=== PATIENT | female | born 1955 | race Asian ===

== ENCOUNTER 2017-10-09 11:19 | Emergency (ER) | payer OTHER ==
[~2017-10-09] VITALS: Ht 160 cm; Wt 54.0 kg
[2017-10-09 11:47] VITALS: Ht 160 cm; Wt 54.0 kg
[2017-10-09 13:05] LABS: BASOPHIL % 0.3 % (0-2); PLATELET COUNT 249 x10^3mcL (130-400); RED CELL DISTRIBUTION WIDTH 12.8 % (11.5-14.5)
[2017-10-09 13:13] LABS: UA SPECIFIC GRAVITY <=1.005 (1.005-1.035); microscopic required? YES; urine erythrocyte TRACE (NEGATIVE)
[2017-10-09 13:26] LABS: CALCIUM 8.2 mg/dL (8.5-10.1); CARBON DIOXIDE 28.5 mmol/L (21-32); CHLORIDE SERUM 108 mmol/L (98-107); CREATININE SERUM 0.5 mg/dL (0.6-1.0); GFR1 > 60 mL/min; GLUCOSE SERUM 99 mg/dL (74-106); POTASSIUM SERUM 3.2 mmol/L (3.5-5.1); SODIUM SERUM 141 mmol/L (136-145)
[2017-10-09 13:30] LABS: ALBUMIN 3.6 g/dL (3.4-5.0); ALKALINE PHOSPHATASE 68 U/L (46-116); ALT/SGPT 28 U/L (14-59); AST/SGOT 21 U/L (15-37); BILIRUBIN TOTAL 0.87 mg/dL (0.20-1.00); LIPASE 169 IU/L (73-393); TOTAL PROTEIN, SERUM 7.2 g/dL (6.4-8.2)
[2017-10-09 19:10] VITALS: BP 116/74
== END 2017-10-09 19:10 | disposition home or self-care (01) ==
LOC: ED 11:19
PROVIDERS: Emergency Medicine
DX: R19.7 Diarrhea, unspecified (principal); R10.13 Epigastric pain
CPT/HCPCS: J7030